=== PATIENT | female | born 1980 | race Caucasian/White ===

== ENCOUNTER 2017-04-14 19:32 | Inpatient (IN) | payer SELFPAY ==
[~2017-04-14] VITALS: Ht 167.6 cm; Wt 169.6 kg
[~2017-04-14 19:32] MED LIST: CIPR500T94 PO; HYDR-971 PO; ONDA4TAB10 PO; TAMS0.4C97 PO
[2017-04-14] MEDS ORDERED: fentaNYL PF 100 MCG/2 ML VIAL IV PRN (20:15)
[2017-04-14] MEDS: IV NORMAL SALINE 1,000ML 1,000 ML IV SCH ×2 (20:15→20:44)
[2017-04-14] MEDS ORDERED: NOREPINEPHRINE BITARTRATE 8 MG in IV NORMAL SALINE 250ML 250 ML IV PRN (20:15)
[2017-04-14 21:37] LABS: BASO # 0.1 x10^3/uL (0.0-0.2); BASO % 1 % (0-3); EOS # 0.1 x10^3/uL (0.0-0.7); EOS % 1 % (0-3); HEMATOCRIT 40.1 % (36.0-47.0); HEMOGLOBIN 13.6 g/dL (12.0-15.5); LYMPH # 1.7 x10^3/uL (1.0-4.8); LYMPH % 16 % (24-48); MEAN CORPUSCULAR HEMOGLOBIN 30 pg (25-35); MEAN CORPUSCULAR HGB CONC 34 g/dL (31-37); MEAN CORPUSCULAR VOLUME 90 fL (79-100); MONO # 0.8 x10^3/uL (0.0-1.1); MONO % 8 % (0-9); NEUT # 7.8 x10^3uL (1.8-7.7); NEUT % 75 % (31-73); PLATELET COUNT 183 x10^3/uL (140-400); RED BLOOD COUNT 4.48 x10^6/uL (3.50-5.40); RED CELL DISTRIBUTION WIDTH 13.7 % (11.5-14.5); WHITE BLOOD COUNT 10.4 x10^3/uL (4.0-11.0)
[2017-04-14 21:48] LABS: ALBUMIN 3.9 g/dL (3.4-5.0); ALBUMIN/GLOBULIN RATIO 0.8 (1.0-1.7); CREATININE 0.9 mg/dL (0.6-1.0); GFR 70.5; POTASSIUM 3.7 mmol/L (3.5-5.1); TOTAL BILIRUBIN 0.6 mg/dL (0.2-1.0); TOTAL PROTEIN 8.6 g/dL (6.4-8.2)
--- NOTE | 2017-04-14 22:13 | RAD ---
Examination: Left Lower Extremity Venous Doppler Ultrasound History: Left lower leg swelling Comparison: None Procedure: Garcia scale, color flow 2D and spectal waveform analysis images are obtained with and without compression in the area of the common femoral vein, superficial femoral vein - femoral vein junction, main femoral vein (superficial femoral vein) and popliteal vein. Veins of the proximal calf are also imaged. Findings: There is normal duplex flow, color flow and compressibility of all visualized vein segments. No evidence of deep venous thrombus is present. The peroneal vein could not be identified. Few enlarged left groin lymph nodes. Impression: No evidence of DVT in the visualized left lower extremity venous system. Electronically signed by: Ramos Almodovar MD (04/14/2017 10:10 PM) [facility]
[2017-04-15] MEDS ORDERED: VANCOMYCIN 2 GM in IV NORMAL SALINE 500ML 500 ML IV ONE ×2
[2017-04-15 00:07] VITALS: BP 143/85
[2017-04-15 00:31] LABS: BILIRUBIN,URINE NEG (NEG); CLARITY,URINE CLEAR; COLOR,URINE YELLOW; GLUCOSE,URINE NEG (NEG)
[2017-04-15 00:32] LABS: BACTERIA,URINE FEW /HPF (0-FEW); NITRITE,URINE NEG (NEG); RBC,URINE OCC /HPF (0-2); SQUAMOUS EPITHELIAL CELL,UR FEW /LPF; UROBILINOGEN,URINE 1 mg/dL (0.2 mg/dL)
[2017-04-15] MEDS ORDERED: VANCOMYCIN 1 GM VIAL. ONE ×3 (00:35→01:15)
[2017-04-15] MEDS ORDERED: IV NORMAL SALINE 500ML 500 ML ONE ×2 (00:35→01:14)
--- NOTE | 2017-04-15 00:38 | EKG ---
[address] [address] Test Date: 2017-04-14 Test Time: 20:21:30 Pat Name: BELEN CARTER Department: Room: 117 A Gender: F Lead Former: : 1980 Requested By: WOJCIECH RUVALCABA Order Number: [id number] Reading MD: Olivier Griffin Measurements Intervals [place] Rate: 126 P: 60 MI: 138 QRS: 31 QRSD: 76 T: 46 QT: 288 QTc: 417 Interpretive Statements SINUS TACHYCARDIA Electronically Signed On 04-15-2017 11:55:11 CDT by Olivier Griffin
[2017-04-15] MEDS ORDERED: IV NORMAL SALINE 100ML 100 ML ONE (00:39)
[2017-04-15] MEDS: ACETAMINOPHEN 325 MG TABLET PO PRN (00:40)
[2017-04-15] MEDS ORDERED: METO50TA2 PO (00:48)
[2017-04-15] MEDS ORDERED: MULT-208 PO (00:48)
[2017-04-15] MEDS ORDERED: cloNIDine HCL 0.1 MG TABLET PO PRN (01:30)
[2017-04-15] MEDS ORDERED: ACETAMINOPHEN 325 MG TABLET PO PRN (01:30)
[2017-04-15] MEDS ORDERED: ONDANSETRON PF 4 MG/2 ML VIAL. IV PRN (01:30)
[2017-04-15] MEDS ORDERED: MORPHINE SULFATE 4 MG/ML DISP.SYRIN. IV PRN (01:30)
--- NOTE | 2017-04-15 01:53 | PHYS DOC ---
Past History Past Medical History: No Pertinent History Past Surgical History: Other Alcohol Use: None Drug Use: None Adult General Chief Complaint Chief Complaint: CELLULITIS HPI HPI Patient is a 36 year old female who presents with left lower extremity cellulitis. The patient reports today she noticed redness & warmth to her left lower leg. She reports sweats/chills & nausea. She denies fever, vomiting. Denies cough, shortness of breath, chest pain, abdominal pain, diarrhea, dysuria. History of previous cellulitis. She states she recently had insect bites to her lower legs & had been itching frequently. She has history of HTN for which she takes metoprolol but has been noncompliant x [address] Gao. Review of Systems Review of Systems Constitutional: Reports sweats and chills Eyes: Denies change in visual acuity HENT: Denies nasal congestion or sore throat Respiratory: Denies cough or shortness of breath Cardiovascular: Denies chest pain or edema GI: Reports nausea. Denies abdominal pain, vomiting, or diarrhea : Denies dysuria Musculoskeletal: Denies back pain or joint pain Integument: Reports left lower extremity cellulitis Neurologic: Denies headache, focal weakness or sensory changes Current Medications Current Medications Current Medications Medications (Trade) Dose Ordered Sig/Devika Start Time Stop Time Status Last Admin Dose Admin Fentanyl Citrate (Fentanyl 2ml Vial) 50 mcg PRN Q15MIN PRN 04/14/17 20:15 04/15/17 20:14 Norepinephrine Bitartrate 8 mg/ Sodium Chloride 258 ml @ 0 mls/hr CONT PRN 04/14/17 20:15 04/14/17 20:15 DC Sodium Chloride 1,000 ml @ 2,100 mls/hr Q29M 04/14/17 20:15 04/14/17 21:15 DC 04/14/17 20:15 2,100 MLS/HR Allergies Allergies Allergies Coded Allergies Type Severity Reaction Last Updated Verified No Known Drug Allergies 05/07/15 No Physical Exam Physical Exam Constitutional: Morbidly obese, no acute distress, non-toxic appearance. HENT: Normocephalic, atraumatic, bilateral external ears normal, oropharynx moist, nose normal. Eyes: conjunctiva normal, no discharge. Neck: supple, no stridor. Cardiovascular: Tachycardic, regular, no murmurs, no edema. Lungs & Thorax: LCTAB, no wheezing, no respiratory distress. Abdomen: soft, nontender, nondistended. Skin: Cellulitis of left lower extremity Back: No tenderness. Extremities: Left lower extremity lower leg anteriorly and laterally with erythema and warmth, scattered insect bites and excoriations, calf tenderness present. DP and PT 2+, sensation intact to foot. Neurologic: Alert and oriented X 3, no focal deficits noted. Psychologic: Affect normal, judgement normal, mood normal. Current Patient Data Vital Signs Vital Signs Date Time Temp Pulse Resp B/P (MAP) Pulse Ox O2 Delivery O2 Flow Rate FiO2 04/15/17 00:30 Room Air 04/15/17 00:07 100.7 117 20 143/85 (104) 95 Lab Results Laboratory Tests Test 04/14/17 21:15 04/15/17 00:15 White Blood Count 10.4 x10^3/uL (4.0-11.0) Red Blood Count 4.48 x10^6/uL (3.50-5.40) Hemoglobin 13.6 g/dL (12.0-15.5) Hematocrit 40.1 % (36.0-47.0) Mean Corpuscular Volume 90 fL (79-100) Mean Corpuscular Hemoglobin 30 pg (25-35) Mean Corpuscular Hemoglobin Concent 34 g/dL (31-37) Red Cell Distribution Width 13.7 % (11.5-14.5) Platelet Count 183 x10^3/uL (140-400) Neutrophils (%) (Auto) 75 % (31-73) H Lymphocytes (%) (Auto) 16 % (24-48) L Monocytes (%) (Auto) 8 % (0-9) Eosinophils (%) (Auto) 1 % (0-3) Basophils (%) (Auto) 1 % (0-3) Neutrophils # (Auto) 7.8 x10^3uL (1.8-7.7) H Lymphocytes # (Auto) 1.7 x10^3/uL (1.0-4.8) Monocytes # (Auto) 0.8 x10^3/uL (0.0-1.1) Eosinophils # (Auto) 0.1 x10^3/uL (0.0-0.7) Basophils # (Auto) 0.1 x10^3/uL (0.0-0.2) Sodium Level 140 mmol/L (136-145) Potassium Level 3.7 mmol/L (3.5-5.1) Chloride Level 102 mmol/L (98-107) Carbon Dioxide Level 29 mmol/L (21-32) Anion Gap 9 (6-14) Blood Urea Nitrogen 12 mg/dL (7-20) Creatinine 0.9 mg/dL (0.6-1.0) Estimated GFR (Cockcroft-Gault) 70.5 BUN/Creatinine Ratio 13 (6-20) Glucose Level 97 mg/dL (70-99) Lactic Acid Level 1.2 mmol/L (0.4-2.0) Calcium Level 9.0 mg/dL (8.5-10.1) Total Bilirubin 0.6 mg/dL (0.2-1.0) Aspartate Amino Transferase (AST) 29 U/L (15-37) Alanine Aminotransferase (ALT) 42 U/L (14-59) Alkaline Phosphatase 85 U/L (46-116) Total Protein 8.6 g/dL (6.4-8.2) H Albumin 3.9 g/dL (3.4-5.0) Albumin/Globulin Ratio 0.8 (1.0-1.7) L Urine Collection Type Unknown Urine Color Yellow Urine Clarity Clear Urine pH 7.5 Urine Specific [place] 1.020 Urine Protein Neg (NEG-TRACE) Urine Glucose (UA) Neg mg/dL (NEG) Urine Ketones (Stick) Neg mg/dL (NEG) Urine Blood Trace (NEG) Urine Nitrite Neg (NEG) Urine Bilirubin Neg (NEG) Urine Urobilinogen Dipstick 1 mg/dL (0.2 mg/dL) Urine Leukocyte Esterase Trace (NEG) Urine RBC Occ /HPF (0-2) Urine WBC 1-4 /HPF (0-4) Urine Squamous Epithelial Cells Few /LPF Urine Bacteria Few /HPF (0-FEW) EKG EKG Interpreted by me: Sinus tachycardia rate 126, no acute ST or T wave changes, normal intervals, no ectopy[] Radiology/Procedures Radiology/Procedures PROCEDURE: VENOUS LOWER EXTREMITY LEFT Examination: Left Lower Extremity Venous Doppler Ultrasound History: Left lower leg swelling Comparison: None Procedure: Garcia scale, color flow 2D and spectal waveform analysis images are obtained with and without compression in the area of the common femoral vein, superficial femoral vein - femoral vein junction, main femoral vein (superficial femoral vein) and popliteal vein. Veins of the proximal calf are also imaged. Findings: There is normal duplex flow, color flow and compressibility of all visualized vein segments. No evidence of deep venous thrombus is present. The peroneal vein could not be identified. Few enlarged left groin lymph nodes. Impression: No evidence of DVT in the visualized left lower extremity venous system. Electronically signed by: Ramos Almodovar MD (04/14/2017 10:10 PM) [facility] DICTATED AND SIGNED BY: RAMOS ALMODOVAR MD DATE: 04/14/172208[] Course & Med Decision Making Course & Med Decision Making Pertinent Labs and Imaging studies reviewed. (See chart for details) The patient presents with left lower extremity cellulitis. She is noted to be tachycardic & hypertensive on arrival. The blood pressure documented in the medical record is 140s systolic but in the room monitor read 210/113. She was afebrile during triage but temp of 100.7 is now documented in medical record from her vitals upon arrival to the floor. Administered IV fluids per sepsis protocol & obtained blood cultures & lactic acid. Normal WBC & lactic acid. Gave vancomycin for cellulitis. Blood pressure remained elevated. Will resume metoprolol & give clonidine for additional control. Recommended admission for further evaluation & treatment. The patient agrees with plan of care. Discussed with Dr. Gao who agrees to admit to inpatient status. The patient is admitted in stable condition. [] Dragon Disclaimer Dragon Disclaimer This chart was dictated in whole or in part using Voice Recognition software in a busy, high-work load, and often noisy Emergency Department environment. It may contain unintended and wholly unrecognized errors or omissions. Departure Departure: Impression: Primary Impression: Left leg cellulitis Additional Impressions: Tachycardia Hypertension Sepsis Disposition: ADMITTED INPATIENT Admitting Physician: Trinity Gao Condition: STABLE Referrals: TRINITY GAO MD (PCP) Problem Qualifiers WOJCIECH RUVALCABA MD Apr 15, 2017 01:53
[2017-04-15] MEDS: VANCOMYCIN PER PHARMACY MC PRN (03:28)
[2017-04-15 05:39] VITALS: BP 130/80
[2017-04-15 06:12] LABS: CALCIUM 8.1 mg/dL (8.5-10.1); CREATININE 0.7 mg/dL (0.6-1.0); GFR 94.2; POTASSIUM 3.8 mmol/L (3.5-5.1)
[2017-04-15] MEDS: METOPROLOL TART IMMED RELEASE 50 MG TABLET PO SCH ×2 (09:10→22:03)
[2017-04-15] MEDS: VANCOMYCIN 2 GM in IV NORMAL SALINE 500ML 500 ML IV SCH ×2 (09:14→17:32)
[2017-04-15 11:42] VITALS: BP 122/78
--- NOTE | 2017-04-15 13:30 | HP ---
ADMIT DATE: HISTORY OF PRESENT ILLNESS: A 36-year-old female came in with lower leg cellulitis; however, her pulse was up over 100, temperature was up over 100. She was admitted for further evaluation and treatment for possible sepsis, cellulitis to her lower extremities. 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 She has flea bites to her lower legs, which in turn has led to a cellulitis that she scratched and excoriations were noted. The patient was found to be septic and consequently she was admitted for IV antibiotic therapy. The patient has no known allergies. Her history basically is hypertension, polycystic ovarian disease, fracture of her ankle with 2 plates, 14 screws and wire as noted. FAMILY HISTORY: Positive for hypothyroidism, diabetes in a brother is noted. ALLERGIES: No drug allergies noted there. MEDICATIONS: She just takes metoprolol 50 mg b.i.d. and one multivitamin. SOCIAL HISTORY: Denies smoking, alcohol or drug use. Runs a foster care. REVIEW OF SYSTEMS: In any case, the patient's review of systems; basically denies fever, chills, does feel little bit ill, achiness, pain in her legs. PHYSICAL EXAMINATION: GENERAL: The patient is a white female, denying chest pain, no shortness of breath. VITAL SIGNS: Blood pressure 214/116, pulse of 120, temperature 100.7, respiratory rate 20. HEENT: The patient's head was atraumatic, normocephalic. Eyes: PERRLA without jaundice. Mouth and throat were normal. NECK: Supple. No lymphadenopathy noted. LUNGS: Clear to auscultation. CARDIOVASCULAR: Regular sinus rhythm. ABDOMEN: Soft, nontender, protuberant. EXTREMITIES: No clubbing, cyanosis. Multiple excoriation, multiple bites to the lower extremities with inflammation to the lower extremities. Pulses noted distally, coarseness, swelling to the legs, +1 pitting edema as well as erythema noted. IMPRESSION: Sepsis, cellulitis to the lower legs, flea bites to the lower legs, morbid obesity, hypertension, hyperglycemia. PLAN: The patient continued on IV antibiotic therapies, vancomycin for now and make further evaluation on her in the morning. TRINITY GAO MD DR: FELY/april JOB#: [id number] / [id number]
[2017-04-15] MEDS: FLUOCINONIDE 0.05% TOPICAL CREAM 15 GM TUBE. TP SCH ×2 (13:33→21:58)
[2017-04-15 15:10] VITALS: BP 117/74
[2017-04-15 19:12] VITALS: BP 148/70
[2017-04-15 22:52] VITALS: BP 157/93
[2017-04-16] MEDS: VANCOMYCIN 2 GM in IV NORMAL SALINE 500ML 500 ML IV SCH ×2 (02:04→09:11)
[2017-04-16] MEDS: ACETAMINOPHEN 325 MG TABLET PO PRN (02:11)
[2017-04-16 02:12] LABS: VANC TR 14.7 mcg/mL (10.0-20.0)
[2017-04-16] MEDS: VANCOMYCIN PER PHARMACY MC PRN ×2 (03:15→09:05)
[2017-04-16 05:01] VITALS: BP 147/78
[2017-04-16 06:42] LABS: CALCIUM 8.2 mg/dL (8.5-10.1); CREATININE 0.7 mg/dL (0.6-1.0); GFR 94.2; POTASSIUM 3.6 mmol/L (3.5-5.1)
[2017-04-16 06:45] LABS: BASO % 1 % (0-3); EOS # 0.2 x10^3/uL (0.0-0.7); EOS % 4 % (0-3); HEMATOCRIT 35.9 % (36.0-47.0); LYMPH # 2.3 x10^3/uL (1.0-4.8); LYMPH % 39 % (24-48); MEAN CORPUSCULAR HEMOGLOBIN 30 pg (25-35); MEAN CORPUSCULAR HGB CONC 34 g/dL (31-37); MEAN CORPUSCULAR VOLUME 91 fL (79-100); MONO # 0.7 x10^3/uL (0.0-1.1); MONO % 12 % (0-9); NEUT # 2.7 x10^3uL (1.8-7.7); NEUT % 46 % (31-73); PLATELET COUNT 165 x10^3/uL (140-400); RED BLOOD COUNT 3.96 x10^6/uL (3.50-5.40); RED CELL DISTRIBUTION WIDTH 13.7 % (11.5-14.5)
--- NOTE | 2017-04-16 07:51 | ACF ---
Admit Criteria Forms Admit Criteria Forms Admit Criteria Forms CELLULITIS Clinical Indications for Admission to Inpatient Care ([place]/check or initial the applicable condition/criteria) Admission is indicated for ANY ONE of the following(1)(2)(3)(4)(5): [ ]I. Limb-threatening infection [ ]II. High-risk comorbid condition as indicated by ANY ONE of the following: [ ]a) Uncontrolled diabetes (eg, HbA1c greater than 10% (0.1)) [ ]b) Cirrhosis [ ]c) Neutropenia [ ]d) Asplenia(12) [ ]e) Immunosuppression [ ]f) Symptomatic heart failure [ ]III. Failure of outpatient therapy as indicated by ALL of the following(6): [ ]a) Progression or no improvement after adequate trial (minimum of 48 hours, with longer period for stable lower extremity infection) [ ]b) Adequate antibiotic regimen as indicated by use of ANY ONE of the following: [ ]i) First-generation cephalosporin (e.g., cephalexin) [ ]ii) Antistaphylococcal penicillin (e.g., dicloxacillin) [ ]iii) Penicillin-allergic patient regimen (clindamycin, extended-spectrum fluoroquinolone, or doxycycline) [ ]iv) Resistant organism (eg, methicillin-resistant Staphylococcus aureus) regimen (7)(8) [ ]c) Outpatient intravenous therapy regimen is not appropriate due to ANY ONE of the following. (9)(10) [ ]i) It was tried and was not successful (eg, progression of infection). [ ]ii) It is not available or cannot be arranged in a clinically appropriate time frame (e.g., the next day). [ ]iii) Clinical presentation (eg, acuity of infection, rapidity of progression, confirmed or suspected bacteremia) is judged to require ALL of the following: [ ]1) Immediate initiation of intravenous therapy ( eg, cannot wait for next day) [ ]2) Intensity of patient monitoring and observation (eg, vital sign measurement, checks for infection progression) that cannot be provided at other than inpatient level of care [ ]IV. Altered Mental status that is severe or persistent [ ]V. Bacteremia [ ]. Hemodynamic instability [ ]VII. Suspected necrotizing soft tissue infection (e.g., gas in tissue)(13)( 14)(15) [ ]VIII. Orbital infection (16)(17) [ ]XI. Associated surgical procedure (e.g., abscess drainage, debridement) not amenable to outpatient, emergency department, or observation care [ ]X. Cutaneous gangrene(19) [ ]XII. High fever (temperature greater than 39.5 degrees C (103.1 degrees F) (oral)) not responsive to outpatient, emergency department, or observation care therapy(20)(21) [X]XIII. Inpatient admission required [A]rather than observation care (Also use Cellulitis: Observation Care as appropriate) because of ANY ONE of the following(22)(23): [ ]a) Periorbital or perineal infection that is severe or worsening [X]b) Severe pain requiring acute inpatient management [ ]b) IV fluid to replace significant ongoing (e.g., for over 24 hours) losses (greater than 3 L/m2 per day) [ ]b) Compartment syndrome monitoring (24) [ ]b) Strict or protective (eg, laminar flow) isolation) [ ]b) Urgent debridement or skin grafting [ ]b) Bone or joint debridement [ ]b) Immediate inpatient surgery [ ]b) Other condition, treatment, or monitoring requiring inpatient admission Extended stay beyond goal length of stay may be needed for(18)(36)(37)(38)(39)( 40)(41) [ ]a) Necrotizing soft tissue infection or fasciitis(13)(42) [ ]b) Gram-negative infection [ ]c) Methicillin-resistant Staphylococcal aureus (MRSA) infection(7)(43) [ ]d) Peripheral venous insufficiency with cellulitis [ ]e) Extensive edema [ ]f) Sepsis or continued Hemodynamic instability [ ]g) Continued high fever or mental status change [ ]h) Bacteremia(43) [ ]i) Active serious comorbid conditions ( eg, heart failure, renal insufficiency) The original [facility] content created by [employer] has been revised. The portions of the content which have been revised are identified through the use of italic text, and [employer] has neither reviewed nor approved the modified material. All other unmodified content is copyright [employer] Please see references footnoted in the original [employer] [facility] edition 2014 NAM SMITH Apr 16, 2017 07:51
[2017-04-16] MEDS: FLUOCINONIDE 0.05% TOPICAL CREAM 15 GM TUBE. TP SCH (09:11)
[2017-04-16] MEDS: METOPROLOL TART IMMED RELEASE 50 MG TABLET PO SCH (09:12)
[2017-04-16] MEDS ORDERED: SULF1TAB24 PO (10:29)
[2017-04-16] MEDS ORDERED: FLUO15CR TP (10:29)
[2017-04-16 10:31] VITALS: BP 131/89
== END 2017-04-16 13:35 | disposition home or self-care (01) | DRG 872 ==
LOC: ER 19:32 → 1 SOUTH 22:55
PROVIDERS: ADMIT Family Medicine; ATTEND Family Medicine
DX: A41.9 Sepsis, unspecified organism (principal); E66.01 Morbid (severe) obesity due to excess calories; I10 Essential (primary) hypertension; L03.116 Cellulitis of left lower limb; E28.2 Polycystic ovarian syndrome; W57.XXXA Bitten or stung by nonvenomous insect and other nonvenomous arthropods, initial encounter; Z83.3 Family history of diabetes mellitus; Z91.19 Patient's noncompliance with other medical treatment and regimen; R73.9 Hyperglycemia, unspecified
CPT/HCPCS: 36415; 80048; 80053; 80202; 81001; 83605; 85025; 87040; 87086; 93005; 93971; 96360; 96361; J3370; J7040; 99285-25; J7030